=== PATIENT | female | born 1995 | race African-American/Black ===

== ENCOUNTER 2018-07-07 05:20 | Emergency (ER) | payer SELFPAY ==
[~2018-07-07] VITALS: Ht 157.5 cm; Wt 57.0 kg
[~2018-07-07 05:20] MED LIST: birth control
[2018-07-07 05:41] VITALS: BP 126/56
== END 2018-07-07 08:16 | disposition left against medical advice (07) ==
LOC: ER 05:20
DX: Z53.21 Procedure and treatment not carried out due to patient leaving prior to being seen by health care provider (principal)